=== PATIENT | female | born 1935 | race Caucasian/White ===

== ENCOUNTER 2018-05-18 05:36 | Day surgery (SDC) | payer OTHER ==
[~2018-05-18] VITALS: Ht 152.4 cm; Wt 53.1 kg
--- NOTE | ~2018-05-18 | O ---
[facility] [place] [address] OPERATIVE REPORT Name: BAILEE HOANG Room #: DEP [facility].#: [id number] Admission: 05/18/18 Attend Phys: Nacho Del Rosario MD Discharge: 05/18/18 Date of : 35 Report #: [id number] THIS REPORT FOR: //name// CC: Marquis BOWIE Physician staff Nacho Del Rosario DATE OF SERVICE: 05/18/2018 PREOPERATIVE DIAGNOSIS: Tumor of left lower lid and cheek. POSTOPERATIVE DIAGNOSIS: Tumor of left lower lid and cheek, basal cell carcinoma. PROCEDURE: Excision of tumor of left lower lid and cheek with frozen section, control of margins and myocutaneous flap repair of defect. SURGEON: Nacho Del Rosario MD. PAY [employer]ATION DEPARTMENT MANAGER: None. ANESTHESIA: MAC. COMPLICATIONS: None. INDICATIONS FOR SURGERY: This pleasant 82-year-old woman has a nodular ulcerative mass in her left lower lid extending onto her cheek that appears to be a basal cell carcinoma. She presents today for excision of the tumor with frozen sections and subsequent reconstruction of that defect. Informed consent was obtained to include but not limited to potential risk for loss of vision, bleeding, infection, failure to improve the problem, the potential need for further surgery or treatment. DESCRIPTION OF PROCEDURE: The patient was taken to the operating room where 2% Xylocaine with epinephrine mixed with equal parts of 0.75% Marcaine with Wydase was administered transcutaneously and transconjunctivally to the left lower lid, the left lateral canthus, the left cheek, the left medial canthus, and left infratemporal fossa. The patient was subsequently prepped and draped in the usual sterile fashion. A fine tip skin marking pen was then utilized to outline the lesion including 1-2 mm of normal appearing tissue. The incisions were then made perpendicularly across the eyelid margin and drawn down to a point in the premalar tissues. Hemostasis was achieved in the field with diligent pinpoint monopolar cautery. The specimen was then passed off the field to the waiting pathologist in an oriented fashion on a drawing. The pathologist snap [address] [address] OPERATIVE REPORT Name: BAILEE HOANG Room #: DEP [facility]..#: [id number] Admission: 05/18/18 Attend Phys: Nacho Del Rosario MD Discharge: 05/18/18 Date of : 35 Report #: [id number] that specimen and found that the lesion was indeed a basal cell carcinoma and that the margins appeared clear. A myocutaneous flap was then developed laterally to be rotated medially to correct the defect. Hemostasis was then re-achieved. The relaxing incisions were closed with interrupted Vicryl sutures deep and 6-0 plain gut sutures superficially. The tarsal plate was reapproximated with interrupted 5-0 Vicryl sutures. The eyelid margin was reapproximated with interrupted 7-0 Vicryl sutures. The subcutaneous structures and the skin then were closed with interrupted Vicryl sutures deep and 6-0 plain gut sutures superficially as the final closure was accomplished. The patient was then transported to the recovery area having tolerated the procedure well with no anesthetic or operative complications being noted after the wound was dressed with erythromycin ophthalmic ointment. <ELECTRONICALLY SIGNED> By: Nacho Del Rosario MD 05/22/18 0616 [id number] [id number] Nacho Del Rosario MD /nt
--- NOTE | ~2018-05-18 | PATH ---
[facility] [address] [place] [address] PATHOLOGY RPT PROCEDURE Name: PAM ZAFAR Room #: [place] [facility] M.R.#: [id number] Admission: 05/18/18 Date of : 35 Discharge: 05/18/18 Report #: [id number] Path Case #: [id number] [facility] Accession Number: [id number] . 01 Material submitted: . LESION LEFT LOWER EYELID . 01 Clinical history: . None provided. . 02 Diagnosis: Skin, lesion left lower eyelid, excision: - BASAL CELL CARCINOMA. - MARGINS OF RESECTION FREE OF MALIGNANCY. (IUV/db; 05/20/18) LBQ/05/20/2018 . 02 Electronically signed: . Elizabeth Dillon MD, Pathologist NPI- [id number] . 01 Gross description: . Received fresh from the OR, labeled, "Pam Zafar - Lesion left lower lid" is an oriented triangular specimen of skin measuring 1.0 cm from base to the tip, the base measures 0.6 cm. The specimen is 0.5 cm in thickness. The specimen is designated as follows: Superior 12:00, lateral 3:00, inferior 6:00, and medial 9:00. The 12-3-6:00 is inked black, 6-9:00 is inked blue, and the 9-12:00 is inked green. The specimen is serially sectioned into four pieces and submitted entirely for frozen section as FSA1, this is subsequently submitted for permanent section as A1. (IUV:mml; 05/19/18) . . INTRAOPERATIVE FROZEN SECTION CONSULTATION: (Katrin Dillon MD) . FSA1. Skin, lesion left lower lid, excision: - BASAL CELL CARCINOMA. - No invasive tumor identified at ink on FS slides. . The findings are discussed with Dr. Nacho Del Rosario in OR6 at [facility] and a written report is placed in the patient's chart. (IUV:mml; 05/19/18) . . Frozen section performed at [facility],[address] [place] [id number] PATHOLOGY RPT PROCEDURE Name: PAM ZAFAR Room #: [facility] Cheo.Destiny#: [id number] Admission: 05/18/18 Date of : 35 Discharge: 05/18/18 Report #: [id number] Path Case #: [id number] [place] [address]. /LBQ . 02 Pathologist provided ICD-10: C44.119 . 02 CPT . 459821, 865821 Performed at: [address], [place] [id number] MD Dung Pfeiffer MD Phone: [phone] Performed at: 02 [facility] [address] [place], [place] [id number] MD Elizabeth Dillon MD Phone: [phone]
[~2018-05-18 05:36] MED LIST: ASPIR 8181 MG PO; BENADRYL25 MG PO; CALCIUM 500 +1 EAC5 PO; CENTRUM SILVER1 EAC4 PO; OMEPRAZOLE 20 M20 M1 PO; PRESERVISION T1 EACH PO; REFRESH TEARS15 ML OPHTHALMIC; RESTASIS1 EACH OPHTHALMIC; TUMS PO; TYLENOL EXTRA500 MG PO
[2018-05-18 10:50] VITALS: BP 154/76
== END 2018-05-18 13:47 | disposition home or self-care (01) ==
LOC: OR 05:36 → TBA 05:36 → OR 11:43
DX: C44.119 Basal cell carcinoma of skin of left eyelid, including canthus (principal); C44.319 Basal cell carcinoma of skin of other parts of face; K21.9 Gastro-esophageal reflux disease without esophagitis; Z98.41 Cataract extraction status, right eye; Z98.42 Cataract extraction status, left eye; Z90.710 Acquired absence of both cervix and uterus; Z85.42 Personal history of malignant neoplasm of other parts of uterus; Z90.49 Acquired absence of other specified parts of digestive tract; Z79.82 Long term (current) use of aspirin; Z79.899 Other long term (current) drug therapy
CPT/HCPCS: 50010; 50101; 50386; 50398; 51636; 56528; 56531; 62110; 62850; 70005